=== PATIENT | male | born 1955 | race Two or more races ===

== ENCOUNTER 2016-07-16 18:16 | Emergency (ER) | payer MEDICAID ==
[~2016-07-16] VITALS: Ht 157.5 cm; Wt 86.2 kg
[2016-07-16 20:04] VITALS: BP 141/84
== END 2016-07-16 20:15 | disposition home or self-care (01) ==
LOC: ER 18:22
DX: R33.9 Retention of urine, unspecified (principal); I10 Essential (primary) hypertension
CPT/HCPCS: 51702

== ENCOUNTER 2016-07-25 11:34 | Emergency (ER) | payer MEDICAID ==
[~2016-07-25] VITALS: Ht 157.5 cm; Wt 86.2 kg
[2016-07-25 11:46] VITALS: BP 105/69
== END 2016-07-25 12:21 | disposition left against medical advice (07) ==
LOC: ER 11:35
DX: R33.9 Retention of urine, unspecified (principal); Z46.6 Encounter for fitting and adjustment of urinary device; Z53.21 Procedure and treatment not carried out due to patient leaving prior to being seen by health care provider

== ENCOUNTER 2017-03-09 07:44 | Day surgery (SDC) | payer MEDICAID ==
[2017-03-09] MEDS ORDERED: IODIXANOL 320MG/ML 100ML BTL IV ONE (08:00)
[2017-03-09] MEDS ORDERED: LIDOCAINE 2%HCL (LOCAL ANESTH.) INJ 20ML MDV ONE (08:01)
[2017-03-09] MEDS ORDERED: MIDAZOLAM HCL 1MG/1ML-2 ML VIAL ONE (08:26)
[2017-03-09] MEDS ORDERED: fentaNYL CITRATE 100 MCG/2 ML VL ONE (08:26)
[2017-03-09] MEDS ORDERED: ANGIOMAX 250 MG VIAL IV ONE (08:28)
[2017-03-09] MEDS ORDERED: SODIUM CHL 0.9% 0 ML ONE (08:29)
[2017-03-09] MEDS ORDERED: VERAPAMIL 2.5MG/ML INJ 2ML VIAL IV ONE (08:34)
[2017-03-09] MEDS ORDERED: HEPARIN SODIUM (PORCINE) 5000 UNITS/ML 1ML VIAL ONE (08:45)
== END 2017-03-09 11:02 | disposition home or self-care (01) ==
LOC: CATH 07:44
PROVIDERS: ATTEND Internal Medicine
DX: R94.39 Abnormal result of other cardiovascular function study (principal); I10 Essential (primary) hypertension; E11.9 Type 2 diabetes mellitus without complications
CPT/HCPCS: 93458; C1769; C1894; J1644; J3010; J7030; 82962; 99152; 99153; J2250; Q9967

== ENCOUNTER 2021-05-10 12:51 | Emergency (ER) | payer MEDICAID ==
[~2021-05-10] VITALS: Ht 160 cm; Wt 86.2 kg
[2021-05-10 12:53] VITALS: BP 122/90
[2021-05-10] MEDS ORDERED: ASPirin 81 mg TAB PO ONE (13:00)
== END 2021-05-10 14:37 | disposition left against medical advice (07) ==
LOC: ER 12:51
DX: I24.9 Acute ischemic heart disease, unspecified (principal); I10 Essential (primary) hypertension; E11.9 Type 2 diabetes mellitus without complications; E78.5 Hyperlipidemia, unspecified
CPT/HCPCS: 93005

== ENCOUNTER 2022-02-15 13:33 | Emergency (ER) | payer OTHER, MEDICAID ==
[~2022-02-15] VITALS: Ht 157.5 cm; Wt 85.8 kg
[2022-02-15 13:58] VITALS: BP 144/86
[2022-02-15] MEDS ORDERED: DICL50TA2 PO (16:44)
[2022-02-15] MEDS ORDERED: FLUT1SPR5 (16:44)
[2022-02-15] MEDS ORDERED: CYCL-837 PO (16:44)
== END 2022-02-15 17:08 | disposition home or self-care (01) ==
LOC: ER 13:33
DX: H92.02 Otalgia, left ear (principal); M26.602 Left temporomandibular joint disorder, unspecified; I10 Essential (primary) hypertension; E11.9 Type 2 diabetes mellitus without complications; E78.5 Hyperlipidemia, unspecified; Z79.899 Other long term (current) drug therapy

== ENCOUNTER 2022-05-16 10:18 | Emergency (ER) | payer OTHER, MEDICAID ==
[~2022-05-16] VITALS: Ht 157.5 cm; Wt 88.4 kg
[~2022-05-16 10:18] MED LIST: CYCL-837 PO; DICL50TA2 PO; FLUT1SPR5
[2022-05-16 11:38] VITALS: BP 153/87
[2022-05-16] MEDS ORDERED: IBUPROFEN 800 MG TAB PO ONE (12:00)
[2022-05-16] MEDS ORDERED: IBUP800T27 PO (12:04)
== END 2022-05-16 12:13 | disposition home or self-care (01) ==
LOC: ER 10:18
DX: S43.004A Unspecified dislocation of right shoulder joint, initial encounter (principal); E11.9 Type 2 diabetes mellitus without complications; E78.5 Hyperlipidemia, unspecified; I10 Essential (primary) hypertension; Z88.6 Allergy status to analgesic agent; W01.0XXA Fall on same level from slipping, tripping and stumbling without subsequent striking against object, initial encounter; Y93.01 Activity, walking, marching and hiking; Y92.89 Other specified places as the place of occurrence of the external cause; Y99.8 Other external cause status
CPT/HCPCS: 23650; 73020; 73030

== ENCOUNTER 2023-03-25 10:58 | Emergency (ER) | payer OTHER, MEDICAID ==
[~2023-03-25] VITALS: Ht 160 cm; Wt 85.8 kg
[~2023-03-25 10:58] MED LIST changes: +IBUP-1456 PO
[2023-03-25 11:25] VITALS: BP 162/99; PULSE 63; RESP 16; TEMP 99.6; O2SAT 95
[2023-03-25] MEDS ORDERED: AZIT500T66 PO (11:38)
[2023-03-25] MEDS ORDERED: PROM1SOL4 PO (11:39)
== END 2023-03-25 11:48 | disposition home or self-care (01) ==
LOC: ER 10:58
DX: J20.9 Acute bronchitis, unspecified (principal); R07.89 Other chest pain; I10 Essential (primary) hypertension; E11.9 Type 2 diabetes mellitus without complications; E78.5 Hyperlipidemia, unspecified; Z79.1 Long term (current) use of non-steroidal anti-inflammatories (NSAID); Z79.2 Long term (current) use of antibiotics; Z79.899 Other long term (current) drug therapy
CPT/HCPCS: 71045